=== PATIENT | female | born 1965 | race American Indian/Alaskan Native ===

== ENCOUNTER 2017-06-15 10:24 | Emergency (ER) | payer BC ==
[2017-06-15 10:34] VITALS: BP 112/80
[2017-06-15] MEDS ORDERED: TESSALON PERLES PO ONE (12:01)
--- NOTE | 2017-06-15 12:45 | XRay Report ---
Chest 2 views: History: Cough. Findings: Borderline cardiomegaly. Trachea is midline. No consolidation, pneumothorax or pleural effusion. Impression: No acute cardiopulmonary findings.
--- NOTE | 2017-06-15 13:36 | Emergency Department Report ---
- General Chief Complaint: Upper Respiratory Infection Stated Complaint: UPPER RESP INFECTION Time Seen by Provider: 06/15/17 12:02 Source: patient Mode of arrival: Ambulatory Limitations: No Limitations - History of Present Illness Initial Comments: This is a 52-year-old female nontoxic, well nourished in appearance, no acute signs of distress presents to the ED with c/o of productive cough, rhinorrhea, nasal congestion 1 week. Patient stated due to the cough and sore throat she had vomited once 5 days ago. Patient denies any fever, chills, shortness of breath, headache, nausea, stiff neck, vomiting, calf pain, calf tenderness, hemoptysis, difficulty breathing. Patient stated she has been coughing a lot and now developed hoarness. Patient denies any drooling. Denies any allergies. Denies any recent travels, long car rides, or recent hospital stays. Patient stated PMH includes HTN, GERD, and arthritis. MD Complaint: cough, rhinorrhea, nasal congestion -: week(s) (1) Severity: mild Severity scale (0 -10): 8 Quality: aching Consistency: constant Improves With: nothing Worsens With: nothing Associated Symptoms: denies other symptoms, rhinorrhea, nasal congestion, cough , hoarseness. denies: fever, chills, myalgias, diaphoresis, headache, sore throat, stiff neck, chest pain, shortness of breath, abdominal pain, nausea, vomiting, diarrhea, dysuria, rash, confusion, right sweats, weight loss, epistaxis, ear pain Treatments Prior to Arrival: none - Related Data Home Medications Medication Instructions Recorded Confirmed Last Taken Amlodipine Besylate [Norvasc] 10 mg PO DAILY 10/03/14 05/09/15 04/04/15 Hydrochlorothiazide [HCTZ] 25 mg PO QDAY 10/03/14 05/16/15 05/16/15 Lisinopril [Zestril TAB] 40 mg PO QDAY 10/03/14 05/09/15 04/04/15 PARoxetine 0 PO DAILY 11/13/14 05/16/15 05/15/15 cloNIDine PO QDAY 05/09/15 05/16/15 05/15/15 Previous Rx's Medication Instructions Recorded Last Taken Type Famotidine [Pepcid] 20 mg PO Q12H #60 tablet 11/13/14 05/13/15 Rx Ibuprofen [Motrin 800 MG tab] 800 mg PO Q8HR PRN #20 tablet 09/28/15 Unknown Rx Neomy/Polymyx B/Hc (Otic) Soln 5 drops AD QID #1 bottle 09/28/15 Unknown Rx [Cortisporin (Otic) Soln] Ibuprofen [Motrin] 800 mg PO Q8HR PRN #30 tablet 04/28/17 Unknown Rx oxyCODONE /ACETAMINOPHEN [Percocet 1 tab PO Q4HR PRN #20 tab 04/28/17 Unknown Rx 5/325] Azithromycin [Zithromax Z-JHONATAN] 250 mg PO DAILY 6 Days tablet 06/15/17 Unknown Rx Benzonatate [Tessalon Perle] 100 mg PO Q8H #30 capsule 06/15/17 Unknown Rx Allergies Allergy/AdvReac Type Severity Reaction Status Date / Time No Known Allergies Allergy Verified 04/03/15 12:37 ED Review of Systems ROS: Stated complaint: UPPER RESP INFECTION Other details as noted in HPI Constitutional: denies: chills, fever Eyes: denies: eye pain, eye discharge, vision change ENT: throat pain. denies: ear pain Respiratory: cough. denies: shortness of breath, wheezing Cardiovascular: denies: chest pain, palpitations Endocrine: no symptoms reported Gastrointestinal: denies: abdominal pain, nausea, diarrhea Genitourinary: denies: urgency, dysuria, discharge Musculoskeletal: denies: back pain, joint swelling, arthralgia Skin: denies: rash, lesions Neurological: denies: headache, weakness, paresthesias Psychiatric: denies: anxiety, depression Hematological/Lymphatic: denies: easy bleeding, easy bruising ED Past Medical Hx - Past Medical History Previous Medical History?: Yes Hx Hypertension: Yes (2008) Hx GERD: Yes Hx Arthritis: Yes Hx Asthma: No Hx COPD: No Hx HIV: No - Surgical History Past Surgical History?: Yes Additional Surgical History: Cyst removal 30 years ago. Uterine fibroid removal. Tubiligation - Social History Smoking Status: Never Smoker Substance Use Type: None - Medications Home Medications: Home Medications Medication Instructions Recorded Confirmed Last Taken Type Amlodipine Besylate [Norvasc] 10 mg PO DAILY 10/03/14 05/09/15 04/04/15 History Hydrochlorothiazide [HCTZ] 25 mg PO QDAY 10/03/14 05/16/15 05/16/15 History Lisinopril [Zestril TAB] 40 mg PO QDAY 10/03/14 05/09/15 04/04/15 History Famotidine [Pepcid] 20 mg PO Q12H #60 tablet 11/13/14 05/16/15 05/13/15 Rx PARoxetine 0 PO DAILY 11/13/14 05/16/15 05/15/15 History cloNIDine PO QDAY 05/09/15 05/16/15 05/15/15 History Ibuprofen [Motrin 800 MG tab] 800 mg PO Q8HR PRN #20 tablet 09/28/15 Unknown Rx Neomy/Polymyx B/Hc (Otic) Soln 5 drops AD QID #1 bottle 09/28/15 Unknown Rx [Cortisporin (Otic) Soln] Ibuprofen [Motrin] 800 mg PO Q8HR PRN #30 tablet 04/28/17 Unknown Rx oxyCODONE /ACETAMINOPHEN [Percocet 1 tab PO Q4HR PRN #20 tab 04/28/17 Unknown Rx 5/325] Azithromycin [Zithromax Z-JHONATAN] 250 mg PO DAILY 6 Days tablet 06/15/17 Unknown Rx Benzonatate [Tessalon Perle] 100 mg PO Q8H #30 capsule 06/15/17 Unknown Rx ED Physical Exam - General Limitations: No Limitations General appearance: alert, in no apparent distress - Head Head exam: Present: atraumatic, normocephalic, normal inspection - Eye Eye exam: Present: normal appearance, PERRL, EOMI. Absent: scleral icterus, conjunctival injection, nystagmus, periorbital swelling, periorbital tenderness Pupils: Present: normal accommodation - ENT ENT exam: Present: mucous membranes moist, TM's normal bilaterally, normal external ear exam - Expanded ENT Exam Expanded Ear exam: Present: normal external inspection Mouth exam: Present: normal external inspection, tongue normal. Absent: drooling, trismus, muffled voice, tongue elevation, laceration Teeth exam: Present: normal inspection Throat exam: Positive: tonsillar erythema, tonsillomegaly (2+), other (No abscess or swelling noted). Negative: tonsillar exudate, R peritonsillar mass, L peritonsillar mass - Neck Neck exam: Present: normal inspection, full ROM. Absent: tenderness, meningismus, lymphadenopathy, thyromegaly - Respiratory Respiratory exam: Present: normal lung sounds bilaterally. Absent: respiratory distress, wheezes, rales, rhonchi, stridor, chest wall tenderness, accessory muscle use, decreased breath sounds, prolonged expiratory - Cardiovascular Cardiovascular Exam: Present: regular rate, normal rhythm, normal heart sounds. Absent: bradycardia, tachycardia, irregular rhythm, systolic murmur, diastolic murmur, rubs, gallop - GI/Abdominal GI/Abdominal exam: Present: soft, normal bowel sounds. Absent: distended, tenderness, guarding, rebound, rigid, diminished bowel sounds - Rectal Rectal exam: Present: deferred - Extremities Exam Extremities exam: Present: normal inspection, full ROM, normal capillary refill. Absent: tenderness, pedal edema, joint swelling, calf tenderness - Back Exam Back exam: Present: normal inspection, full ROM. Absent: tenderness, CVA tenderness (R), CVA tenderness (L), muscle spasm, paraspinal tenderness, vertebral tenderness, rash noted - Neurological Exam Neurological exam: Present: alert, oriented X3, CN II-XII intact, normal gait, reflexes normal - Psychiatric Psychiatric exam: Present: normal affect, normal mood - Skin Skin exam: Present: warm, dry, intact, normal color. Absent: rash - Other Other exam information: Negative Holmans test. Negative calf pain or tenderness. ED Course Vital Signs 06/15/17 10:30 Temperature 98.8 F Pulse Rate 81 Respiratory 16 Rate Blood Pressure 112/80 O2 Sat by Pulse 97 Oximetry - Reevaluation(s) Reevaluation #1: 06/15/17 13:46 Patient is speaking in full sentences with no signs of distress noted. ED Medical Decision Making - Medical Decision Making This is a 52-year-old female that presents with upper resp infection. Patient is stable and was examined by me. Chest x-ray has been obtained and the radiologist with normal exam. Patient is notified of x-ray results were noted by the patient. Patient is discharged with azithromycin for medical treatment due to some is being about a week. Patient was instructed Follow-up with a primary care doctor in 3-5 days or if symptoms worsen and continue return to emergency room as soon as possible. At time time of discharge, the patient does not seem toxic or ill in appearance. No acute signs of distress noted. Patient agrees to discharge treatment plan of care. No further questions noted by the patient. Patient received Tessalon Perles in the ED with patient that his symptoms of cough has improved and subsided. Critical care attestation.: If time is entered above; I have spent that time in minutes in the direct care of this critically ill patient, excluding procedure time. ED Disposition Clinical Impression: Upper respiratory infection Qualifiers: URI type: unspecified URI Qualified Code(s): J06.9 - Acute upper respiratory infection, unspecified Disposition: - TO HOME OR SELFCARE Is pt being admited?: No Does the pt Need Aspirin: No Condition: Stable Instructions: Upper Respiratory Infection (ED), Azithromycin (By mouth), Benzonatate (By mouth) Additional Instructions: Follow-up with a primary care doctor in 3-5 days or if symptoms worsen and continue return to emergency room as soon as possible. Prescriptions: Azithromycin [Zithromax Z-JHONATAN] 250 mg PO DAILY 6 Days tablet Benzonatate [Tessalon Perle] 100 mg PO Q8H #30 capsule Referrals: YONY VALENCIA MD [Primary Care Provider] - 3-5 Days YUNIER LORENZO MD [Staff Physician] - 3-5 Days [facility] [Outside] - 3-5 Days [facility] [Outside] - 3-5 Days Forms: Work/School Release Form(ED)
== END 2017-06-15 13:54 | disposition home or self-care (01) ==
LOC: ED 10:24
DX: J06.9 Acute upper respiratory infection, unspecified (principal); I10 Essential (primary) hypertension; K21.9 Gastro-esophageal reflux disease without esophagitis
CPT/HCPCS: 71020

== ENCOUNTER 2017-08-11 14:42 | Outpatient (CLI) | payer BC ==
--- NOTE | 2017-08-11 15:40 | Mammography Report ---
Bilateral mammogram: Compared to 04/25/15. CAD study utilized. Findings: Abdomen surgical station bilaterally. Focal 3 mm dense asymmetry upper and mid right breast with 2 mm circumscribed density in the anterior mid right breast. There is focal ill-defined asymmetry upper anterior left breast with 3 mm circumscribed asymmetry upper anterior left breast below the focal asymmetry. No microcalcification. Benign axilla. Impression: Focal asymmetries right and left breast. Recommend spot mag and if necessary sonographic examination. BI-RADS zero.
== END 2017-08-11 14:43 | disposition home or self-care (01) ==
LOC: MAMMO 14:42
PROVIDERS: ATTEND Family Medicine
DX: Z12.31 Encounter for screening mammogram for malignant neoplasm of breast (principal)
CPT/HCPCS: 77067

== ENCOUNTER 2017-09-26 14:25 | Outpatient (CLI) | payer BC ==
--- NOTE | 2017-09-29 13:08 | Mammography Report ---
BILATERAL DIGITAL DIAGNOSTIC MAMMOGRAM : 09/26/17 14:25:00 CLINICAL: Recalled for bilateral asymmetries. COMPARISON: screening FINDINGS: Bilateral additional mammographic views were obtained and are negative. IMPRESSION: No mammographic evidence of malignancy. BI-RADS CATEGORY: 1 -- Negative RECOMMENDATION: Routine mammographic screening in one year. ACR BI-RADS MAMMOGRAPHIC CODES: 0 = Needs additional imaging evaluation; 1 = Negative; 2 = Benign; 3 = Probably benign; 4 = Suspicious; 5 = Malignant; 6 = Known biopsy-proven malignancy COMMENT: 1. Dense breast tissue, i.e., adenosis, fibrocystic changes, etc., may obscure an underlying neoplasm. 2. Approximately 10% of cancers are not detected with mammography. 3. A negative mammography report should not delay biopsy if a clinically suspicious mass is present. COMMENT: Patient follow-up letters are generated via our [employer] application.
== END 2017-09-26 14:26 | disposition home or self-care (01) ==
LOC: MAMMO 14:25
PROVIDERS: ATTEND Family Medicine
DX: R92.8 Other abnormal and inconclusive findings on diagnostic imaging of breast (principal)
CPT/HCPCS: 77066

== ENCOUNTER 2017-09-28 08:24 | Emergency (ER) | payer BC ==
[2017-09-28 09:05] VITALS: BP 133/85
[2017-09-28] MEDS ORDERED: TYLENOL #3 PO ONE (12:18)
--- NOTE | 2017-09-28 12:18 | Emergency Department Report ---
ED ENT HPI - General Chief complaint: Earache Stated complaint: EAR INFECTION Time Seen by Provider: 09/28/17 11:32 Source: patient Mode of arrival: Ambulatory Limitations: No Limitations - History of Present Illness Initial comments: 52-year-old female past medical history obesity, hypertension, GERD presents with complaint of 5 months of bilateral earache. Patient is awake alert and oriented 3 states that she has muffled hearing in both ears. Denies fevers or chills denies nasal congestion or throat pain. Speaking in full sentences. Denies any respiratory distress. Denies any headache or blurry vision. States she wants her primary care doctor who prescribed her ear wax drops. Patient states she has foreign body sensation in both ears and has been intermittently putting cotton swabs in her ears for several months. MD complaint: ear pain Onset/Timin -: month(s) Location: R ear, L ear Severity: moderate Severity scale (0 -10): 6 Quality: aching Consistency: constant Improves with: none Associated Symptoms: tinnitus - Related Data Home Medications Medication Instructions Recorded Confirmed Last Taken Amlodipine Besylate [Norvasc] 10 mg PO DAILY 10/03/14 05/09/15 04/04/15 Hydrochlorothiazide [HCTZ] 25 mg PO QDAY 10/03/14 05/16/15 05/16/15 Lisinopril [Zestril TAB] 40 mg PO QDAY 10/03/14 05/09/15 04/04/15 PARoxetine 0 PO DAILY 11/13/14 05/16/15 05/15/15 cloNIDine PO QDAY 05/09/15 05/16/15 05/15/15 Previous Rx's Medication Instructions Recorded Last Taken Type Famotidine [Pepcid] 20 mg PO Q12H #60 tablet 11/13/14 05/13/15 Rx Ibuprofen [Motrin 800 MG tab] 800 mg PO Q8HR PRN #20 tablet 09/28/15 Unknown Rx Neomy/Polymyx B/Hc (Otic) Soln 5 drops AD QID #1 bottle 09/28/15 Unknown Rx [Cortisporin (Otic) Soln] Ibuprofen [Motrin] 800 mg PO Q8HR PRN #30 tablet 04/28/17 Unknown Rx oxyCODONE /ACETAMINOPHEN [Percocet 1 tab PO Q4HR PRN #20 tab 04/28/17 Unknown Rx 5/325] Azithromycin [Zithromax Z-JHONATAN] 250 mg PO DAILY 6 Days tablet 06/15/17 Unknown Rx Benzonatate [Tessalon Perle] 100 mg PO Q8H #30 capsule 06/15/17 Unknown Rx Acetaminophen [Acetaminophen TAB] 500 mg PO Q6HR PRN #20 tablet 09/28/17 Unknown Rx Acetaminophen/Codeine [Tylenol 1 tab PO Q6H PRN #12 tab 09/28/17 Unknown Rx /Codeine # 3 tab] Amoxicillin/Potassium Clav 1 each PO BID #20 tablet 09/28/17 Unknown Rx [Augmentin 875-125 Tablet] Neomy/Polymyx B/Hc (Otic) Soln 4 drops OTIC Q6H #1 bottle 09/28/17 Unknown Rx [Cortisporin (Otic) Soln] Allergies Allergy/AdvReac Type Severity Reaction Status Date / Time No Known Allergies Allergy Verified 04/03/15 12:37 ED Dental HPI - General Chief complaint: Earache Stated complaint: EAR INFECTION Time Seen by Provider: 09/28/17 11:32 Source: patient Mode of arrival: Ambulatory Limitations: No Limitations - Related Data Home Medications Medication Instructions Recorded Confirmed Last Taken Amlodipine Besylate [Norvasc] 10 mg PO DAILY 10/03/14 05/09/15 04/04/15 Hydrochlorothiazide [HCTZ] 25 mg PO QDAY 10/03/14 05/16/15 05/16/15 Lisinopril [Zestril TAB] 40 mg PO QDAY 10/03/14 05/09/15 04/04/15 PARoxetine 0 PO DAILY 11/13/14 05/16/15 05/15/15 cloNIDine PO QDAY 05/09/15 05/16/15 05/15/15 Previous Rx's Medication Instructions Recorded Last Taken Type Famotidine [Pepcid] 20 mg PO Q12H #60 tablet 11/13/14 05/13/15 Rx Ibuprofen [Motrin 800 MG tab] 800 mg PO Q8HR PRN #20 tablet 09/28/15 Unknown Rx Neomy/Polymyx B/Hc (Otic) Soln 5 drops AD QID #1 bottle 09/28/15 Unknown Rx [Cortisporin (Otic) Soln] Ibuprofen [Motrin] 800 mg PO Q8HR PRN #30 tablet 04/28/17 Unknown Rx oxyCODONE /ACETAMINOPHEN [Percocet 1 tab PO Q4HR PRN #20 tab 04/28/17 Unknown Rx 5/325] Azithromycin [Zithromax Z-JHONATAN] 250 mg PO DAILY 6 Days tablet 06/15/17 Unknown Rx Benzonatate [Tessalon Perle] 100 mg PO Q8H #30 capsule 06/15/17 Unknown Rx Acetaminophen [Acetaminophen TAB] 500 mg PO Q6HR PRN #20 tablet 09/28/17 Unknown Rx Acetaminophen/Codeine [Tylenol 1 tab PO Q6H PRN #12 tab 09/28/17 Unknown Rx /Codeine # 3 tab] Amoxicillin/Potassium Clav 1 each PO BID #20 tablet 09/28/17 Unknown Rx [Augmentin 875-125 Tablet] Neomy/Polymyx B/Hc (Otic) Soln 4 drops OTIC Q6H #1 bottle 09/28/17 Unknown Rx [Cortisporin (Otic) Soln] Allergies Allergy/AdvReac Type Severity Reaction Status Date / Time No Known Allergies Allergy Verified 04/03/15 12:37 ED Review of Systems ROS: Stated complaint: EAR INFECTION Other details as noted in HPI Constitutional: denies: chills, fever Eyes: denies: eye pain, eye discharge, vision change ENT: ear pain (5 months). denies: throat pain Respiratory: denies: cough, shortness of breath, wheezing Cardiovascular: denies: chest pain, palpitations Endocrine: no symptoms reported Gastrointestinal: denies: abdominal pain, nausea, diarrhea Genitourinary: denies: urgency, dysuria, discharge Musculoskeletal: denies: back pain, joint swelling, arthralgia Skin: denies: rash, lesions Neurological: denies: headache, weakness, paresthesias Psychiatric: denies: anxiety, depression Hematological/Lymphatic: denies: easy bleeding, easy bruising ED Past Medical Hx - Past Medical History Previous Medical History?: Yes Hx Hypertension: Yes (2008) Hx GERD: Yes Hx Arthritis: Yes Hx Asthma: No Hx COPD: No Hx HIV: No - Surgical History Past Surgical History?: Yes Additional Surgical History: Cyst removal 30 years ago. Uterine fibroid removal. Tubiligation - Social History Smoking Status: Never Smoker Substance Use Type: None - Medications Home Medications: Home Medications Medication Instructions Recorded Confirmed Last Taken Type Amlodipine Besylate [Norvasc] 10 mg PO DAILY 10/03/14 05/09/15 04/04/15 History Hydrochlorothiazide [HCTZ] 25 mg PO QDAY 10/03/14 05/16/15 05/16/15 History Lisinopril [Zestril TAB] 40 mg PO QDAY 10/03/14 05/09/15 04/04/15 History Famotidine [Pepcid] 20 mg PO Q12H #60 tablet 11/13/14 05/16/15 05/13/15 Rx PARoxetine 0 PO DAILY 11/13/14 05/16/15 05/15/15 History cloNIDine PO QDAY 05/09/15 05/16/15 05/15/15 History Ibuprofen [Motrin 800 MG tab] 800 mg PO Q8HR PRN #20 tablet 09/28/15 Unknown Rx Neomy/Polymyx B/Hc (Otic) Soln 5 drops AD QID #1 bottle 09/28/15 Unknown Rx [Cortisporin (Otic) Soln] Ibuprofen [Motrin] 800 mg PO Q8HR PRN #30 tablet 04/28/17 Unknown Rx oxyCODONE /ACETAMINOPHEN [Percocet 1 tab PO Q4HR PRN #20 tab 04/28/17 Unknown Rx 5/325] Azithromycin [Zithromax Z-JHONATAN] 250 mg PO DAILY 6 Days tablet 06/15/17 Unknown Rx Benzonatate [Tessalon Perle] 100 mg PO Q8H #30 capsule 06/15/17 Unknown Rx Acetaminophen [Acetaminophen TAB] 500 mg PO Q6HR PRN #20 tablet 09/28/17 Unknown Rx Acetaminophen/Codeine [Tylenol 1 tab PO Q6H PRN #12 tab 09/28/17 Unknown Rx /Codeine # 3 tab] Amoxicillin/Potassium Clav 1 each PO BID #20 tablet 09/28/17 Unknown Rx [Augmentin 875-125 Tablet] Neomy/Polymyx B/Hc (Otic) Soln 4 drops OTIC Q6H #1 bottle 09/28/17 Unknown Rx [Cortisporin (Otic) Soln] ED Physical Exam - General Limitations: No Limitations General appearance: alert, in no apparent distress - Head Head exam: Present: atraumatic, normocephalic - Eye Eye exam: Present: normal appearance, PERRL, EOMI - ENT ENT exam: Present: mucous membranes moist, other (b/l impactions with cerumen and cotton swabs) - Expanded ENT Exam Expanded TM/Canal exam: Erythema: Right TM, Left TM, Bulging: Right TM, Foreign Body: Right TM, Left TM (cotton swab stuck on left, also cotton swab stuck in canal on right), Cerumen Impaction: Right TM, Left TM - Neck Neck exam: Present: normal inspection - Respiratory Respiratory exam: Present: normal lung sounds bilaterally. Absent: respiratory distress - Cardiovascular Cardiovascular Exam: Present: regular rate, normal rhythm. Absent: systolic murmur, diastolic murmur, rubs, gallop - GI/Abdominal GI/Abdominal exam: Present: soft, normal bowel sounds - Extremities Exam Extremities exam: Present: normal inspection - Back Exam Back exam: Present: normal inspection - Neurological Exam Neurological exam: Present: alert, oriented X3, CN II-XII intact, normal gait - Psychiatric Psychiatric exam: Present: normal affect, normal mood - Skin Skin exam: Present: warm, dry, intact, normal color. Absent: rash ED Course Vital Signs 09/28/17 08:52 Temperature 98.5 F Pulse Rate 68 Respiratory 18 Rate Blood Pressure 133/85 O2 Sat by Pulse 98 Oximetry - Foreign Body Removal Ear Location: ear canal (L) Foreign Body Suspected: other (cotton swab) Foreign Body Removed: yes Foreign Body Removal Technique: instrumentation Tympanic Membrane Intact: Yes Patient Tolerated Procedure: well Additional Comments: Successful removal of cotton swab from left ear ED Medical Decision Making - Medical Decision Making A/P: Otitis media, otitis externa, foreign body removal bilateral ears 1-successful full removal of cotton swab from left ear canal. Tympanic membrane visualized, erythematous but intact. I was only able to partially remove cotton swab from right ear canal as it is very deep in the ear canal. Partial view of tympanic membrane achieved. Tolerated well by patient. I will refrain from further instrumentation so that I do not injure patient's right eardrum 2-patient has bilateral canal erythema treat empirically with course of Augmentin for 10 days, Tylenol when necessary, short course Tylenol 3 when necessary. Cortisporin ear drops 3-I emphasized the importance of follow-up with ENT to the patient. Provided her with multiple referrals and advised her to follow-up wherever she can obtain an appointment as soon as possible. [email or web address] 4- no clinical signs of mastoiditis. Patient's hearing is intact. 5- case d/w dr. Chew before discharge Critical care attestation.: If time is entered above; I have spent that time in minutes in the direct care of this critically ill patient, excluding procedure time. ED Disposition Clinical Impression: Otitis media Qualifiers: Otitis media type: suppurative Chronicity: acute Laterality: bilateral Recurrence: not specified as recurrent Spontaneous tympanic membrane rupture: without spontaneous rupture Qualified Code(s): H66.003 - Acute suppurative otitis media without spontaneous rupture of ear drum, bilateral Foreign body of both ears Qualifiers: Encounter type: initial encounter Qualified Code(s): T16.1XXA - Foreign body in right ear, initial encounter; T16.2XXA - Foreign body in left ear, initial encounter Otitis externa Qualifiers: Otitis externa type: unspecified type Chronicity: acute Laterality: bilateral Qualified Code(s): H60.503 - Unspecified acute noninfective otitis externa, bilateral Disposition: TO HOME OR SELFCARE Is pt being admited?: No Does the pt Need Aspirin: No Condition: Stable Instructions: Otitis Externa (ED), Otitis Media (ED), Ear Foreign Body (ED) Additional Instructions: [email or web address] Prescriptions: Acetaminophen [Acetaminophen TAB] 500 mg PO Q6HR PRN #20 tablet PRN Reason: Pain Acetaminophen/Codeine [Tylenol /Codeine # 3 tab] 1 tab PO Q6H PRN #12 tab PRN Reason: Pain Amoxicillin/Potassium Clav [Augmentin 875-125 Tablet] 1 each PO BID #20 tablet Neomy/Polymyx B/Hc (Otic) Soln [Cortisporin (Otic) Soln] 4 drops OTIC Q6H #1 bottle Referrals: KRISTEN INMAN MD [Primary Care Provider] - 3-5 Days SANJAY PERRY MD [Staff Physician] - 3-5 Days [facility] [Provider Group] - 3-5 Days [facility] [Provider Group] - 3-5 Days Forms: Accompanied Note Time of Disposition: 12:25
== END 2017-09-28 13:06 | disposition home or self-care (01) ==
LOC: ED 08:24
DX: T16.1XXA Foreign body in right ear, initial encounter (principal); T16.2XXA Foreign body in left ear, initial encounter; H66.003 Acute suppurative otitis media without spontaneous rupture of ear drum, bilateral; H60.503 Unspecified acute noninfective otitis externa, bilateral; I10 Essential (primary) hypertension; K21.9 Gastro-esophageal reflux disease without esophagitis; X58.XXXA Exposure to other specified factors, initial encounter; Y93.89 Activity, other specified; Y92.89 Other specified places as the place of occurrence of the external cause; Y99.8 Other external cause status

== ENCOUNTER 2021-03-10 13:42 | Emergency (ER) | payer BC ==
[2021-03-10 14:18] VITALS: BP 162/97
--- NOTE | 2021-03-10 14:47 | Emergency Department Report ---
- General Chief Complaint: Upper Respiratory Infection Stated Complaint: SINUS RUNNYNOSE, COUGH Time Seen by Provider: 03/10/21 14:34 Source: patient Mode of arrival: Ambulatory Limitations: No Limitations - History of Present Illness Initial Comments: 55-year-old female with a past medical history of diabetes, hypertension, hyperlipidemia and asthma presents to the ER today with complaints of URI symptoms. Patient states that symptoms started about 2 days ago. She reports runny nose, nasal congestion, productive cough, with blood-tinged yellow sputum, shortness of breath and wheezing. She states that she had a low-grade temperature overnight 9.7 yesterday. She reports loss of taste today. She denies any body aches. Patient states that she ran out of her albuterol MDI this morning. She has been using as needed since she has been sick. She denies any apparent ill contacts or recent travel. She states that she did take a COVID-19 oral test this morning, and would like the results until next Friday. She has gotten the COVID-19 Pfizer vaccine back in August. She reports no additional symptoms at this time. She states that she is never had to be admitted for asthma in the past. She is not currently on any blood thinners. MD Complaint: cough, rhinorrhea, nasal congestion, sinus pain, other (Hematemesis, shortness of breath, wheezing) -: Gradual, days(s) (2) - Related Data Home Medications Medication Instructions Recorded Confirmed Last Taken Amlodipine Besylate [Norvasc] 10 mg PO DAILY 10/03/14 05/09/15 04/04/15 hydroCHLOROthiazide [HCTZ] 25 mg PO QDAY 10/03/14 05/16/15 05/16/15 lisinopriL [Zestril TAB] 40 mg PO QDAY 10/03/14 05/09/15 04/04/15 PARoxetine 0 PO DAILY 11/13/14 05/16/15 05/15/15 cloNIDine PO QDAY 05/09/15 05/16/15 05/15/15 Previous Rx's Medication Instructions Recorded Last Taken Type Famotidine [Pepcid] 20 mg PO Q12H #60 tablet 11/13/14 05/13/15 Rx Acetaminophen [Acetaminophen TAB] 500 mg PO Q6HR PRN #20 tablet 09/28/17 Unknown Rx Albuterol Mdi (or & Nicu Only) 2 puff IH QID PRN #8.5 gram 03/10/21 Unknown Rx [ProAir HFA Inhaler] Fluticasone [Flonase] 2 spray NS QDAY #1 bottle 03/10/21 Unknown Rx Loratadine [Claritin] 10 mg PO DAILY #30 tablet 03/10/21 Unknown Rx Promethazine Dm (Nf) [Phenergan DM 5 ml PO Q6H PRN #100 ml 03/10/21 Unknown Rx 6.25-15 mg/5 ml] Allergies Allergy/AdvReac Type Severity Reaction Status Date / Time No Known Allergies Allergy Verified 04/03/15 12:37 ED Review of Systems ROS: Stated complaint: SINUS RUNNYNOSE, COUGH Other details as noted in HPI Comment: All other systems reviewed and negative Constitutional: denies: chills, diaphoresis, fever, malaise, weakness Eyes: denies: eye pain, eye discharge, vision change ENT: throat pain (mild ), congestion. denies: ear pain, dental pain, hearing loss, epistaxis Respiratory: cough, shortness of breath, wheezing Cardiovascular: denies: chest pain, palpitations, dyspnea on exertion, edema, syncope, paroxysmal nocturnal dyspnea Gastrointestinal: denies: abdominal pain, nausea, vomiting, diarrhea, constipation, hematemesis, melena, hematochezia Genitourinary: denies: urgency, dysuria, frequency, hematuria, discharge, abnorm al menses, dyspareunia Musculoskeletal: denies: back pain, joint swelling, arthralgia, myalgia Skin: denies: rash, lesions, change in color, change in hair/nails, pruritus Neurological: denies: headache, weakness, numbness, paresthesias, confusion, abnormal gait, vertigo Psychiatric: denies: anxiety, depression, auditory hallucinations, visual hallucinations, homicidal thoughts, suicidal thoughts Hematological/Lymphatic: denies: easy bleeding, easy bruising, swollen glands ED Past Medical Hx - Past Medical History Previous Medical History?: Yes Hx Hypertension: Yes (2008) Hx GERD: Yes Hx Arthritis: Yes Hx Asthma: No Hx COPD: No Hx HIV: No - Surgical History Past Surgical History?: Yes Additional Surgical History: Cyst removal 30 years ago. Uterine fibroid removal. Tubiligation - Social History Smoking Status: Never Smoker Substance Use Type: None - Medications Home Medications: Home Medications Medication Instructions Recorded Confirmed Last Taken Type Amlodipine Besylate [Norvasc] 10 mg PO DAILY 10/03/14 05/09/15 04/04/15 History hydroCHLOROthiazide [HCTZ] 25 mg PO QDAY 10/03/14 05/16/15 05/16/15 History lisinopriL [Zestril TAB] 40 mg PO QDAY 10/03/14 05/09/15 04/04/15 History Famotidine [Pepcid] 20 mg PO Q12H #60 tablet 11/13/14 05/16/15 05/13/15 Rx PARoxetine 0 PO DAILY 11/13/14 05/16/15 05/15/15 History cloNIDine PO QDAY 05/09/15 05/16/15 05/15/15 History Acetaminophen [Acetaminophen TAB] 500 mg PO Q6HR PRN #20 tablet 09/28/17 Unknown Rx Albuterol Mdi (or & Nicu Only) 2 puff IH QID PRN #8.5 gram 03/10/21 Unknown Rx [ProAir HFA Inhaler] Fluticasone [Flonase] 2 spray NS QDAY #1 bottle 03/10/21 Unknown Rx Loratadine [Claritin] 10 mg PO DAILY #30 tablet 03/10/21 Unknown Rx Promethazine Dm (Nf) [Phenergan DM 5 ml PO Q6H PRN #100 ml 03/10/21 Unknown Rx 6.25-15 mg/5 ml] ED Physical Exam - General Limitations: No Limitations General appearance: alert, in no apparent distress - Head Head exam: Present: atraumatic, normocephalic, normal inspection - Eye Eye exam: Present: normal appearance, PERRL, EOMI Pupils: Present: normal accommodation - ENT ENT exam: Present: mucous membranes moist, TM's normal bilaterally - Expanded ENT Exam Expanded Mouth exam: Present: normal external inspection Throat exam: Positive: tonsillar erythema - Neck Neck exam: Present: normal inspection, full ROM. Absent: meningismus - Respiratory Respiratory exam: Present: normal lung sounds bilaterally. Absent: respiratory distress, wheezes, rales, rhonchi, stridor - Cardiovascular Cardiovascular Exam: Present: regular rate, normal rhythm, normal heart sounds - Neurological Exam Neurological exam: Present: alert, oriented X3, CN II-XII intact, normal gait - Psychiatric Psychiatric exam: Present: normal affect, normal mood - Skin Skin exam: Present: intact ED Course Vital Signs 03/10/21 14:16 Temperature 98 F Pulse Rate 79 Respiratory 16 Rate Blood Pressure 162/97 [Left] O2 Sat by Pulse 97 Oximetry ED Medical Decision Making - Radiology Data Radiology results: report reviewed Patient: DIEUDONNE OQUENDO MR#: [id number] : 1965 Acct:[id number] Age/Sex: 55 / F ADM Date: 03/10/21 Loc: ED Attending Dr: Ordering Physician: JOSÉ MIGUEL CAMPBELL Date of Service: 03/10/21 Procedure(s): XR chest routine 2V Accession Number(s): [id number] cc: JOSÉ MIGUEL CAMPBELL Fluoro Time In Minutes: CHEST 2 VIEWS INDICATION: Hematemesis. COMPARISON: 06/15/2017 FINDINGS: SUPPORT DEVICES: None. HEART: Within normal limits. LUNGS/PLEURA: No acute air space or interstitial disease. No pneumothorax. ADDITIONAL FINDINGS: None. IMPRESSION: 1. No acute findings. Signer Name: Ashwin Hua MD Signed: 03/10/2021 3:27 PM Workstation Name: [id number] Transcribed By: JW Dictated By: Ashwin Hua MD Electronically Authenticated By: Ashwin Hua MD Signed Date/Time: 03/10/21 152 DD/ 1526 TD/TT: - Medical Decision Making The patient is resting comfortably, is alert and in no distress. The patient has normal mental status and is neurologically intact. The patient appears well and and there is no significant dehydration. There is no respiratory distress and no signs of systemic toxicity. Her vital signs are stable including a normal O2 sat. Patient's chest is clear to auscultation, but given her complaint of hemoptysis chest x-ray was ordered. Her x-ray shows nothing acute. Patient was ambulated and maintained a O2 sat of 97% on room air. She did not express any complaints at the time she was being ambulated. Suspect viral sinusitis/viral bronchitis at this time. Patient does have a Covid test pending. Her exam, diagnostic testing and current condition do not demonstrate an infectious process such as meningitis, severe pneumonia, acute respiratory distress syndrom with hypoxia, sepsis or other serious viral/bacterial infection requiring further testing, treatment, consultation or admission at this time. Discussed suspected diagnosis and treatment plan with patient. Recommend that she quarantine at home until she get the results of a Covid test. The patient's condition is stable and appropriate for discharge. She expressed understanding of all instructions and agree with plan. The patient will pursue further outpatient evaluation with the primary care physician. Critical care attestation.: If time is entered above; I have spent that time in minutes in the direct care of this critically ill patient, excluding procedure time. ED Disposition Clinical Impression: Sinusitis, Acute bronchitis Disposition: HOME / SELF CARE / HOMELESS Is pt being admited?: No Does the pt Need Aspirin: No Condition: Stable Instructions: Sinusitis, Adult, [id number], Acute Bronchitis, Adult, Acute Bronchitis (ED) Additional Instructions: I recommend the flonase, promethazine DM, the claritin and Albuterol MDI as prescribed. I recommend that you quarantine until you get the results of your COVID 19 test. I recommend close follow up with PCP. Return to ED if symptoms worsens or changes in anyway. Prescriptions: Loratadine [Claritin] 10 mg PO DAILY #30 tablet Fluticasone [Flonase] 2 spray NS QDAY #1 bottle Promethazine Dm (Nf) [Phenergan DM 6.25-15 mg/5 ml] 5 ml PO Q6H PRN #100 ml PRN Reason: Cough Albuterol Mdi (or & Nicu Only) [ProAir HFA Inhaler] 2 puff IH QID PRN #8.5 gram PRN Reason: Shortness Of Breath Referrals: PRIMARY CARE, [Referring] - 3-5 Days Forms: Work/School Release Form(ED) Time of Disposition: 15:51 Print Language: BURUNDIAN
--- NOTE | 2021-03-10 15:31 | XRay Report ---
CHEST 2 VIEWS INDICATION: Hematemesis. COMPARISON: 06/15/2017 FINDINGS: SUPPORT DEVICES: None. HEART: Within normal limits. LUNGS/PLEURA: No acute air space or interstitial disease. No pneumothorax. ADDITIONAL FINDINGS: None. IMPRESSION: 1. No acute findings. Signer Name: Ashwin Hua MD Signed: 03/10/2021 3:27 PM Workstation Name: [id number]
== END 2021-03-10 16:26 | disposition home or self-care (01) ==
LOC: ED 13:42
DX: J32.9 Chronic sinusitis, unspecified (principal); J20.9 Acute bronchitis, unspecified; I10 Essential (primary) hypertension
CPT/HCPCS: 71046; 99283

== ENCOUNTER 2021-06-15 12:09 | Emergency (ER) | payer BC ==
[2021-06-15] MEDS ORDERED: KETOROLAC 30 MG/1 ML INJ IM ONE (13:10)
[2021-06-15 13:45] LABS: Bilirubin,Urine NEG (Negative); Blood,Urine NEG (Negative); Color,Urine Yellow (Yellow); Mucus,Urine FEW /HPF; Protein,Urine <15 mg/dL mg/dL (Negative); Urobilinogen,Urine < 2.0 mg/dL (<2.0)
--- NOTE | 2021-06-15 13:45 | Emergency Department Report ---
Upper Extremity - HPI Chief Complaint: Extremity Injury, Upper Stated Complaint: TINGLE IN RIGHT SIDE Upper Extremity: Right Shoulder Occurred When: 5 Days Mechanism: Unsure Severity: severe Symptoms: Yes Pain with Movement, Yes Numbness, No Deformity, No Limited Range of Movement, No Weakness (Intermittently), No Swelling, No Bruising/Ecchymosis, No Laceration or Abrasion Other History: 56-year-old obese -Mongolian female presents to the emergency room complaining of right shoulder pain for the last 4 to 5 days. Patient states what makes it worse is when she sleeps on the her right arm. She also feels stress aggravates it. States she has been taken [id number] potassium and Tylenol. She has a past medical history of GERD hypertension diabetes. She works as a para pro in elementary school. She also complains of urinary incontinent and urinary frequency. She states she last saw her primary care provider about 2 months ago. She reports she is compliant on her Metformin and glipizide. States that she has been menopausal since the age of 50. ED Review of Systems ROS: Stated complaint: TINGLE IN RIGHT SIDE Other details as noted in HPI Comment: All other systems reviewed and negative Constitutional: denies: chills, fever Eyes: denies: eye pain, eye discharge, vision change ENT: denies: ear pain, throat pain ED Past Medical Hx - Past Medical History Hx Hypertension: Yes (2008) Hx GERD: Yes Hx Arthritis: Yes Hx Asthma: No Hx COPD: No Hx HIV: No - Surgical History Additional Surgical History: Cyst removal 30 years ago. Uterine fibroid re moval. Tubiligation - Social History Smoking Status: Never Smoker Substance Use Type: None - Medications Home Medications: Home Medications Medication Instructions Recorded Confirmed Last Taken Type Amlodipine Besylate [Norvasc] 10 mg PO DAILY 10/03/14 05/09/15 04/04/15 History hydroCHLOROthiazide [HCTZ] 25 mg PO QDAY 10/03/14 05/16/15 05/16/15 History lisinopriL [Zestril TAB] 40 mg PO QDAY 10/03/14 05/09/15 04/04/15 History Famotidine [Pepcid] 20 mg PO Q12H #60 tablet 11/13/14 05/16/15 05/13/15 Rx PARoxetine 0 PO DAILY 11/13/14 05/16/15 05/15/15 History cloNIDine PO QDAY 05/09/15 05/16/15 05/15/15 History Acetaminophen [Acetaminophen TAB] 500 mg PO Q6HR PRN #20 tablet 09/28/17 Unknown Rx Albuterol Mdi (or & Nicu Only) 2 puff IH QID PRN #8.5 gram 03/10/21 Unknown Rx [ProAir HFA Inhaler] Fluticasone [Flonase] 2 spray NS QDAY #1 bottle 03/10/21 Unknown Rx Loratadine [Claritin] 10 mg PO DAILY #30 tablet 03/10/21 Unknown Rx Promethazine Dm (Nf) [Phenergan DM 5 ml PO Q6H PRN #100 ml 03/10/21 Unknown Rx 6.25-15 mg/5 ml] Upper Extremity Exam - Exam General: Vital signs noted. No distress. Alert and acting appropriately. Head and Torso: No HEENT Abnormality, No Neck Tenderness, No Chest/Lungs Abnormality, No Abdominal Tenderness, No Back Tenderness Shoulder Exam: Yes Normal Range of Motion in Shoulder, Yes AC Joint Tenderness, No Shoulder Tenderness, No Clavicle Tenderness, No Shoulder Deformity Arm Exam: Yes Arm/Humerus Tenderness, No Arm Deformity Elbow: No Elbow Tenderness, No Normal Range of Motion in Elbow, No Elbow Deformity Forearm: No Forearm Tenderness, No Forearm Deformity, No Pain with Pronation, No Pain with Supination Wrist: Yes Normal ROM in Wrist, No Wrist Tenderness, No Wrist Deformity, No Snuffbox Tenderness, No Pain with Axial Thumb Compression Hand: Yes Normal ROM in Digit(s), No Hand Tenderness, No Hand Deformity, No Digit Tenderness, No Digit(s) Deformity, No Tendon Dysfunction CMS Exam: No Broken Skin, No Normal Distal Pulses, No Normal Capillary Refill, No Normal Distal Sensation ED Course Vital Signs 06/15/21 12:13 Temperature 98.3 F Pulse Rate 97 H Respiratory 20 Rate Blood Pressure 153/90 [Right] O2 Sat by Pulse 97 Oximetry ED Medical Decision Making - Medical Decision Making 56-year-old obese -Mongolian female presents to the emergency room complaining of right shoulder pain for the last 4 to 5 days. Patient states what makes it worse is when she sleeps on the her right arm. She also feels stress aggravates it. States she has been taken [id number] potassium and Tylenol. She has a past medical history of GERD hypertension diabetes. She works as a para pro in elementary school. She also complains of urinary incontinent and urinary frequency. She states she last saw her primary care provider about 2 months ago. She reports she is compliant on her Metformin and glipizide. States that she has been menopausal since the age of 50. X-ray of right shoulder has been ordered Toradol injection has been ordered and a urinalysis has been ordered. Critical care attestation.: If time is entered above; I have spent that time in minutes in the direct care of this critically ill patient, excluding procedure time. ED Disposition Clinical Impression: Right anterior shoulder pain Disposition: 01 HOME / SELF CARE / HOMELESS Is pt being admited?: No Does the pt Need Aspirin: No Condition: Stable Instructions: Shoulder Pain, [id number] Additional Instructions: X-ray shows no acute osseous findings of the right shoulder. As I recommend you need to follow-up with the operations systems specialist most likely will need an MRI. Please follow-up. Tylenol or ibuprofen for pain management Referrals: YONY VALENCIA MD [Primary Care Provider] - 3-5 Days [facility] [Provider Group] - 3-5 Days Forms: Work/School Release Form(ED) Time of Disposition: 15:58
[2021-06-15 16:18] VITALS: BP 128/72
--- NOTE | 2021-06-19 12:38 | XRay Report ---
XR shoulder 2+V RT INDICATION / CLINICAL INFORMATION: rt shoulder pain COMPARISON: None available. FINDINGS: BONES / JOINT(S): No acute fracture or subluxation. Mild acromioclavicular joint osteoarthritis. SOFT TISSUES: No significant abnormality. ADDITIONAL FINDINGS: None. IMPRESSION: No acute osseous findings in the right shoulder. Signer Name: Mo Sarmiento MD Signed: 06/15/2021 1:44 PM Workstation Name: [id number]
== END 2021-06-15 16:17 | disposition home or self-care (01) ==
LOC: ED 12:09
DX: M25.511 Pain in right shoulder (principal); I10 Essential (primary) hypertension
CPT/HCPCS: 73030; 81001; 96372; 99283; J1885